=== PATIENT | male | born 1945 | race Hispanic/Latino ===

== ENCOUNTER → 2019-01-31 | Outpatient (CLI) | payer MEDICARE ==
[~2019-01-31] MED LIST: ADV250 IH; AEC81 PO; ATOR10 PO; CARV3.12 PO; CLOP75TA14 PO; TIOT18CA3 IH
== END | disposition home or self-care (01) ==
LOC: SHCH 16:41
PROVIDERS: ATTEND Internal Medicine Cardiovascular Disease
DX: I34.0 Nonrheumatic mitral (valve) insufficiency (principal); I48.0 Paroxysmal atrial fibrillation; I48.92 Unspecified atrial flutter
CPT/HCPCS: 93306

== ENCOUNTER → 2019-05-27 | Outpatient (CLI) | payer MEDICARE | END | disposition home or self-care (01) | LOC: SHCH 11:02 | PROVIDERS: ATTEND Internal Medicine Cardiovascular Disease | DX: I08.1 Rheumatic disorders of both mitral and tricuspid valves (principal); I48.0 Paroxysmal atrial fibrillation | CPT/HCPCS: 93306 ==

== ENCOUNTER → 2019-06-28 | Outpatient (CLI) | payer MEDICARE ==
[~2019-06-28] VITALS: Ht 175.3 cm; Wt 45.4 kg
[~2019-06-28] MED LIST changes: +REGADENOSON 0.4 MG/5 ML PF SYG IVP SCH
== END | disposition home or self-care (01) ==
LOC: SHCH 08:03
PROVIDERS: ATTEND Internal Medicine Cardiovascular Disease
DX: I21.29 ST elevation (STEMI) myocardial infarction involving other sites (principal); I25.10 Atherosclerotic heart disease of native coronary artery without angina pectoris
CPT/HCPCS: 78452; 93017; 96374; A9500 ×2; J2785

== ENCOUNTER 2019-07-20 05:34 | Inpatient (IN) | payer MEDICARE | END 2019-07-23 15:30 | disposition home or self-care (01) | LOC: DAH 05:34 → DAHIP 05:35 → 2DH 14:20 | DX: I50.22 Chronic systolic (congestive) heart failure (principal); J93.0 Spontaneous tension pneumothorax; J95.811 Postprocedural pneumothorax; R64 Cachexia; I25.5 Ischemic cardiomyopathy; I11.0 Hypertensive heart disease with heart failure; Z95.810 Presence of automatic (implantable) cardiac defibrillator; J44.9 Chronic obstructive pulmonary disease, unspecified; Z79.01 Long term (current) use of anticoagulants ==

== ENCOUNTER 2019-07-25 23:11 | Inpatient (IN) | payer MEDICARE ==
[~2019-07-25] VITALS: Ht 172.7 cm; Wt 47.7 kg
[~2019-07-25 23:11] MED LIST changes: -ADV250 IH; -AEC81 PO; +APIX5TAB PO; +BUDE10.22 IH; -CLOP75TA14 PO; +FLUT15.845 NS; +FURO40TA5 PO; -REGADENOSON 0.4 MG/5 ML PF SYG IVP SCH; +SACU1TAB PO; -TIOT18CA3 IH; +UMEC62.5 IH
[2019-07-25 23:22] LABS: BASOPHILS % (AUTO) 1.3 % (0.0-5.0); EOSINOPHILS % (AUTO) 4.8 % (0.0-8.0); LYMPHOCYTES % (AUTO) 21.1 % (21.0-51.0); MEAN CORPUSCULAR HEMOGLOBIN 32.7 pg (27.0-33.0); MEAN CORPUSCULAR HGB CONC 33.8 g/dL (32.0-36.0); MEAN CORPUSCULAR VOLUME 96.7 fL (79-99); MONOCYTES % (AUTO) 7.5 % (3.0-13.0); NEUTROPHILS % (AUTO) 65.3 % (40.0-77.0); PLATELET COUNT (AUTO) 124 K/uL (130-400); RED BLOOD CELL COUNT(AUTO) 4.35 MIL/uL (4.50-6.20); RED CELL DISTRIBUTION WIDTH 13.9 % (11.0-15.5)
[2019-07-25 23:32] LABS: POTASSIUM 3.7 mmol/L (3.5-5.1)
[2019-07-25 23:36] LABS: ALBUMIN 3.7 g/dL (3.5-5.0); BILIRUBIN,TOTAL 0.7 mg/dL (0.2-1.0); INR 1.02 (0.85-1.15); PARTIAL THROMBOPLASTIN TIME 28.2 SEC (26.3-35.5); PROTHROMBIN TIME 10.7 SEC (9.6-11.6)
[2019-07-25] MEDS ORDERED: FENTANYL CITRATE PF 50 MCG/1 ML 2ML VIAL ONE (23:47)
[2019-07-25] MEDS ORDERED: LIDOCAINE HCL 1% 20 ML VIAL ONE (23:47)
[2019-07-25 23:49] LABS: B-TYPE NATRIURETIC PEPTIDE 121 pg/mL (0-100)
[2019-07-26] MEDS ORDERED: ONDANSETRON HCL 4 MG/2 ML VIAL ONE (00:29)
[2019-07-26] MEDS ORDERED: FENTANYL CITRATE PF 50 MCG/1 ML 2ML VIAL ONE (01:03)
[2019-07-26] MEDS ORDERED: MORPHINE SULFATE 4 MG/1ML SYG IVP PRN (03:30)
[2019-07-26] MEDS ORDERED: ONDANSETRON HCL 4 MG/2 ML VIAL IVP PRN (03:30)
[2019-07-26] MEDS ORDERED: ACETAMINOPHEN 325 MG TAB PO PRN (03:30)
[2019-07-26] MEDS: CEFTRIAXONE SODIUM 1 GM IVP SCH (04:00)
[2019-07-26] MEDS ORDERED: CEFTRIAXONE SODIUM 1 GM ONE (04:20)
[2019-07-26 04:48] LABS: CREATININE 0.8 mg/dL (0.5-1.5)
[2019-07-26] MEDS ORDERED: SODIUM CHLORIDE 0.9% 1000ML 1,000 ML IV ONE (05:46)
[2019-07-26] MEDS ORDERED: NITR0.4T50 SL (08:55)
[2019-07-26] MEDS ORDERED: MULT-1296 PO (08:55)
[2019-07-26] MEDS ORDERED: MORPHINE SULFATE 2 MG/ML 1ML SYG ONE (13:39)
[2019-07-26] MEDS ORDERED: IPRATROPIUM/ALBUTEROL SULFATE 3 ML SOLUTION IH ONE (14:35)
[2019-07-26] MEDS: IPRATROPIUM/ALBUTEROL SULFATE 3 ML SOLUTION IH SCH ×3 (15:03→21:32)
[2019-07-26] MEDS: ATORVASTATIN CALCIUM 20 MG TABLET PO SCH (21:00)
[2019-07-26] MEDS: **HM** ENTRESTO 24-26MG PO SCH (21:00)
[2019-07-26] MEDS: FAMOTIDINE 20MG TAB 20 MG TAB PO SCH (21:00)
[2019-07-26] MEDS: APIXABAN 5 MG TABLET PO SCH (21:00)
[2019-07-26] MEDS: CARVEDILOL 3.125 MG TABLET PO SCH (21:00)
[2019-07-27] VITALS (7 sets, daily range): BP systolic 81–110; BP diastolic 51–60
[2019-07-27] MEDS ORDERED: APIXABAN 2.5 MG TABLET PO ONE (00:06)
[2019-07-27] MEDS ORDERED: ATORVASTATIN CALCIUM 20 MG TABLET ONE (00:06)
[2019-07-27] MEDS ORDERED: CARVEDILOL 3.125 MG TABLET PO ONE (00:06)
[2019-07-27] MEDS ORDERED: FAMOTIDINE 20MG TAB 20 MG TAB ONE (00:06)
[2019-07-27] MEDS ORDERED: FLU VACC QS2019-20 36MOS UP/PF 60 MCG/0.5 ML ML IM ONE (02:00)
[2019-07-27] MEDS: IPRATROPIUM/ALBUTEROL SULFATE 3 ML SOLUTION IH SCH ×5 (02:01→23:51)
[2019-07-27] MEDS: MORPHINE SULFATE 2 MG/ML 1ML SYG IVP PRN (02:18)
[2019-07-27] MEDS: CEFTRIAXONE SODIUM 1 GM IVP SCH (04:13)
[2019-07-27 05:32] LABS: BASOPHILS % (AUTO) 0.9 % (0.0-5.0); EOSINOPHILS % (AUTO) 3.7 % (0.0-8.0); HEMATOCRIT 34.1 % (42-54); LYMPHOCYTES % (AUTO) 17.9 % (21.0-51.0); MEAN CORPUSCULAR HEMOGLOBIN 33.2 pg (27.0-33.0); MEAN CORPUSCULAR HGB CONC 33.7 g/dL (32.0-36.0); MEAN CORPUSCULAR VOLUME 98.5 fL (79-99); MONOCYTES % (AUTO) 9.3 % (3.0-13.0); NEUTROPHILS % (AUTO) 68.2 % (40.0-77.0); PLATELET COUNT (AUTO) 103 K/uL (130-400); RED BLOOD CELL COUNT(AUTO) 3.46 MIL/uL (4.50-6.20); RED CELL DISTRIBUTION WIDTH 13.6 % (11.0-15.5)
[2019-07-27 05:52] LABS: ALBUMIN 2.7 g/dL (3.5-5.0); BILIRUBIN,TOTAL 0.6 mg/dL (0.2-1.0); CREATININE 0.8 mg/dL (0.5-1.5); POTASSIUM 3.9 mmol/L (3.5-5.1); TOTAL PROTEIN, SERUM 5.5 g/dL (6.0-8.3)
--- NOTE | 2019-07-27 08:30 | NUR ---
AM ASSESSMENT PT LAYING IN BED, HOB ELEVATED 30 DEGREES, RESTING. FAMILY @ BEDSIDE. A/O X 3. SOB ON EXERTION. NO DISTRESS NOTED. O2 NC @ 2L. DENIES CHEST PAIN OR DISCOMFORT. DENIES PALPITATIONS. DENIES INCISIONAL PAIN. LT UPPER CHEST DSG DRY & INTACT. NO DRAINAGE NOTED. NO HEMATOMA NOTED. PPM ARM PRECAUTIONS REINFORCED. LT LATERAL CHEST TUBE TO SUCTION. NO AIR LEAK NOTED. DSG DRY & INTACT. DENIES N/V AND/OR DIARRHEA. BR W/BRP. INSTRUCTED TO CALL FOR ASSISTANCE. CALL JADE W/IN REACH.
[2019-07-27] MEDS: CARVEDILOL 3.125 MG TABLET PO SCH ×2 (09:00→21:00)
[2019-07-27] MEDS: MULTIVITAMINS/MINERALS/IRO TAB PO SCH (09:17)
[2019-07-27] MEDS: FAMOTIDINE 20MG TAB 20 MG TAB PO SCH ×2 (09:21→20:56)
[2019-07-27] MEDS: APIXABAN 5 MG TABLET PO SCH ×2 (09:22→20:57)
[2019-07-27 13:04] LABS: HEMATOCRIT 33.7 % (42-54); MEAN CORPUSCULAR HEMOGLOBIN 32.8 pg (27.0-33.0); MEAN CORPUSCULAR HGB CONC 33.7 g/dL (32.0-36.0); MEAN CORPUSCULAR VOLUME 97.3 fL (79-99); PLATELET COUNT (AUTO) 111 K/uL (130-400); RED BLOOD CELL COUNT(AUTO) 3.46 MIL/uL (4.50-6.20); RED CELL DISTRIBUTION WIDTH 13.7 % (11.0-15.5); WHITE BLOOD COUNT (AUTO) 8.1 K/uL (4.8-10.8)
--- NOTE | 2019-07-27 15:58 | NUR ---
MD VISIT DR ALINA PEDRO & Thania CAAL SUPERVISOR IN CIRCUIT TESTING IN TO SEE PT. LT CHEST TUBE TO H2O SEAL, SUCTION DC'D BY MD. ORDERS RECEIVED & ENTERED.
[2019-07-27] MEDS: **HM** ENTRESTO 24-26MG PO SCH ×2 (16:02→21:00)
--- NOTE | 2019-07-27 16:18 | NUR ---
DCP CM met with pt discussed dc plans. Pt is independent prior to admission, lives at home with spouse. Has a provider 20hrs/wk, shower chair, cane. Denies any other equipments/services. Pt feels safe to go back home, daughter able to assist with transportation and needs as necessary. DC plan to home once stable. CM to cont to follow up. Addendum: 07/27/19 at 1620 by VERONICA OROZCO LVN CM Amended: Links added.
[2019-07-27] MEDS: ATORVASTATIN CALCIUM 20 MG TABLET PO SCH (20:56)
[2019-07-28 04:00] VITALS: BP 102/60
[2019-07-28 04:38] LABS: CREATININE 0.9 mg/dL (0.5-1.5); POTASSIUM 3.4 mmol/L (3.5-5.1)
[2019-07-28] MEDS: IPRATROPIUM/ALBUTEROL SULFATE 3 ML SOLUTION IH SCH ×4 (05:02→23:52)
[2019-07-28] MEDS: CEFTRIAXONE SODIUM 1 GM IVP SCH (05:32)
[2019-07-28 07:43] VITALS: BP 106/65
--- NOTE | 2019-07-28 08:30 | NUR ---
AM ASSESSMENT PT LAYING IN BED, HOB ELEVATED 30 DEGREES, RESTING. SPOUSE @ BEDSIDE. A/O X 3. SOB ON EXERTION. NO DISTRESS NOTED. O2 NC @ 2L. DENIES CHEST PAIN OR DISCOMFORT. DENIES INCISIONAL PAIN. DENIES PAIN OT CHEST TUBE PUNCTURE SITE. TELE: PACED 90s. LT UPPER CHEST INCISION, DRY & INTACT. NO DRAINAGE NOTED. S/P PPM 07/21/19. PPM ARM PRECAUTIONS REINFORCED. LT LATERAL CHEST TUBE TO H20 SEAL. NO AIR LEAK NOTED. DENIES N/V AND/OR DIARRHEA. BEDREST W/BRP. INSTRUCTED TO CALL FOR ASSISTANCE. CALL JADE W/IN REACH.
[2019-07-28] MEDS: APIXABAN 5 MG TABLET PO SCH ×2 (08:43→20:28)
[2019-07-28] MEDS: MULTIVITAMINS/MINERALS/IRO TAB PO SCH (08:43)
[2019-07-28] MEDS: FAMOTIDINE 20MG TAB 20 MG TAB PO SCH ×2 (08:43→20:28)
[2019-07-28] MEDS: **HM** ENTRESTO 24-26MG PO SCH ×2 (08:44→20:29)
[2019-07-28] MEDS: CARVEDILOL 3.125 MG TABLET PO SCH ×2 (08:44→20:32)
--- NOTE | 2019-07-28 10:30 | NUR ---
BOWEL MOVEMENT PT ASKING FOR BEDSIDE COMMODE TO HAVE BM. PT ATTEMPTED TO GET OOB W/HELP FROM SPOUSE. PER PT, TOO WEAK TO GET UP AND REQUESTED BEDPAN. PCP, RICKI, OFFERED TO PLACE PT ON BEDPAN. PT REFUSED PCPs HELP, STATED WOULD ASSIST HIM. PT UNABLE TO BE PLACED ON BEDPAN BY SPOUSE. EXPLAINED TO PT STAFF WILL ASSIST TO GET OOB AND/OR BEDPAN SINCE LT CHEST TUBE IN PLACE & RECENT PPM PLACEMENT. INFORMED STAFF WOULD ASSIST GET OOB & WALK TO RESTRM BUT WOULDN'T BE PRESENT IN RESTRM WHEN PT ATTEMPTS TO HAVE BM. PT PREFERS NOT HAVE BM AND NOT BE ASSISTED BY STAFF TO RESTRM, BEDSIDE COMMODE, OR BEDPAN. REINFORCE SAFETY CONCERNS AND REASON FOR STAFF'S ASSISTANCE. PT CONTINUES TO REFUSE ASSISTANCE AND STATES NOT HAVING TO HAVE A BM. PROCEEDS TO EXPLAIN HE HAS BEEN EATING VERY LITTLE AND DOESN'T HAVE NEED FOR BM. ABDOMEN SOFT, NON-TENDER. DENIES ABDOMINAL PAIN. REMINDED PT LAST BM WAS 07/23/19. PT CONTINUES TO REFUSE ASSISTANCE FROM STAFF. SIMILAR SCENARIO HAPPENED W/SPOUSE PESENT REGARDING BM ON 07/27/19. ARM PRECAUTIONS & SAFETY REINFORCED.
[2019-07-28 11:01] VITALS: BP 122/62
[2019-07-28 16:00] VITALS: BP 102/52
--- NOTE | 2019-07-28 19:35 | NUR ---
TRANSFER PT TRANSFERRED TO RM 204 VIA BED. FAMILY NOTIFIED. PT TOLERATED TRANSFER WELL. NO DISTRESS NOTED. BEDSIDE REPORT GIVEN TO PAULA Hyatt RN.
[2019-07-28 19:43] VITALS: BP 121/48
[2019-07-28] MEDS: ATORVASTATIN CALCIUM 20 MG TABLET PO SCH (20:32)
[2019-07-28 23:37] VITALS: BP 104/63
[2019-07-28] MEDS: MORPHINE SULFATE 2 MG/ML 1ML SYG IVP PRN (23:45)
[2019-07-29 03:54] VITALS: BP 113/62
[2019-07-29] MEDS: CEFTRIAXONE SODIUM 1 GM IVP SCH (04:09)
--- NOTE | 2019-07-29 05:42 | NUR ---
Chest Tube Removed chest tube as per MD orders. No distress noted, denies any shortness of breath, auscultation to bilateral lobes diminished breath sounds. Patient stable. Post chest tube removal X-ray completed pending results.
[2019-07-29] MEDS: IPRATROPIUM/ALBUTEROL SULFATE 3 ML SOLUTION IH SCH ×4 (06:17→23:03)
[2019-07-29 07:04] VITALS: BP 90/50
[2019-07-29] MEDS: **HM** ENTRESTO 24-26MG PO SCH ×2 (09:00→21:00)
[2019-07-29] MEDS: FAMOTIDINE 20MG TAB 20 MG TAB PO SCH ×2 (10:45→21:47)
[2019-07-29] MEDS: APIXABAN 5 MG TABLET PO SCH ×2 (10:46→21:47)
[2019-07-29 11:00] VITALS: BP 97/63
[2019-07-29] MEDS: MULTIVITAMINS/MINERALS/IRO TAB PO SCH (11:49)
[2019-07-29 15:00] VITALS: BP 119/70
[2019-07-29] MEDS: CARVEDILOL 3.125 MG TABLET PO SCH ×3 (17:41→21:47)
--- NOTE | 2019-07-29 18:01 | NUR ---
DC PLAN SPOKE TO PATIENT AND FAMILY. DECLINED SNF. SAID HE WILL GET MORE PT AT HOME THAN AT A FACILITY. TOLD HIM IT WAS ALSO FOR O2. SAID HE ALREADY HAS 02 AT HOME THAT CHILDREN PURCHASED FOR HIM. Addendum: 07/29/19 at 1802 by SANTO HARDY RN CM Amended: Links added.
[2019-07-29 20:06] VITALS: BP 92/42
[2019-07-29] MEDS: ATORVASTATIN CALCIUM 20 MG TABLET PO SCH (21:46)
[2019-07-29 23:56] VITALS: BP 96/54
[2019-07-30 04:15] VITALS: BP 101/52
[2019-07-30] MEDS: CEFTRIAXONE SODIUM 1 GM IVP SCH (06:07)
[2019-07-30] MEDS: IPRATROPIUM/ALBUTEROL SULFATE 3 ML SOLUTION IH SCH ×4 (06:28→23:37)
[2019-07-30 07:12] VITALS: BP 95/53
[2019-07-30] MEDS: CARVEDILOL 3.125 MG TABLET PO SCH ×2 (07:52→20:47)
[2019-07-30] MEDS: APIXABAN 5 MG TABLET PO SCH ×2 (07:53→14:55)
[2019-07-30] MEDS: **HM** ENTRESTO 24-26MG PO SCH ×2 (07:54→21:00)
[2019-07-30] MEDS: MULTIVITAMINS/MINERALS/IRO TAB PO SCH (07:54)
[2019-07-30] MEDS: FAMOTIDINE 20MG TAB 20 MG TAB PO SCH ×2 (07:54→20:47)
--- NOTE | 2019-07-30 08:00 | NUR ---
ASSESSMENT PT IS AAOX4 DENIES CP DENIES SOB DENIES NV NO COMPLAINTS AT THIS TIME. AM MEDS GIVEN, TOLERATED WELL.SITTING UPRIGHT IN BED.. CALL LIGHT WITHIN REACH. FAMILY AT BEDSIDE.
--- NOTE | 2019-07-30 10:15 | NUR ---
DR PIERRE REPORTED TO [place] PNEUMO 20-40% LEFT SIDE THESE RESULTS REPORTED TO KARRIE GAGNON AUTOMOBILE BODY REPAIR SUPERVISOR, AWAITING FURTHER ORDERS
--- NOTE | 2019-07-30 11:13 | NUR ---
ORDERS RECEIVED FOR IR TO PLACE PIGTAIL PATIENT IS REFUSING PIGTAIL PLACEMENT,STATES HE DOESN'T WANT IT AGAIN. WILL LET FIRE EXTINGUISHER TECHNICIAN KNOW.
[2019-07-30 11:14] VITALS: BP 108/68
--- NOTE | 2019-07-30 11:18 | NUR ---
KARRIE GAGNON MADE AWARE OF PTS REFUSAL STATES SHE WILL LET DR MARIA KNOW, WAITING FOR DR MARIA TO ROUND
--- NOTE | 2019-07-30 13:00 | NUR ---
DR MARIA ROUNDED SPOKE WITH PATIENT REGARDING IR TUBE PLACEMENT, AND SURGEON INTERVENTION / OPINION FOR RECURRENT PNEUMOS. PATIENT AGREEABLE TO A SURGICAL OPINION. PATIENT ALSO SAYING IF THINGS WERE TO NOT GO WELL FOR HIM, HE'D LIKE TO BE MADE COMFORTABLE, AND BE HOME LAST RESORT. DR MARIA AGREEABLE FOR HOSPICE CONSULTATION FOR PATIENT IF PATIENT FEELS HE DOESNT WANT TO PROCEED WITH ANY TREATMENT FOR RECURRENT PNEUMOS. PATIENT AND FAMILY TO DISCUSS AMONGST THEMSELVES.
--- NOTE | 2019-07-30 13:41 | NUR ---
PATIENT AGREEABLE TO PIGTAIL CATH PLAN FOR PIGTAIL PLACEMENT THIS AFTERNOON BY RAD STAFF
--- NOTE | 2019-07-30 14:45 | NUR ---
RADIOLOGY STAFF CALLED TO FLOOR STATE THEY WILL PLACE PIGTAIL TOMORROW 9AM, [facility] TO BE ON HOLD TONIGHT AND TOMORROW AM PRIOR TO PIGTAIL. PATIENT MADE AWARE AND AGREES WITH PLAN.
[2019-07-30 14:53] VITALS: BP 99/66
--- NOTE | 2019-07-30 17:15 | NUR ---
STATUS RESTING IN BED, NO COMPLAINTS. FAMILY AT BEDSIDE.
[2019-07-30 20:26] VITALS: BP 114/70
[2019-07-30] MEDS: ATORVASTATIN CALCIUM 20 MG TABLET PO SCH (20:47)
[2019-07-30 23:55] VITALS: BP 93/59
[2019-07-31 03:38] LABS: HEMATOCRIT 32.2 % (42-54); MEAN CORPUSCULAR HEMOGLOBIN 33.9 pg (27.0-33.0); MEAN CORPUSCULAR HGB CONC 34.9 g/dL (32.0-36.0); MEAN CORPUSCULAR VOLUME 97.3 fL (79-99); PLATELET COUNT (AUTO) 170 K/uL (130-400); RED BLOOD CELL COUNT(AUTO) 3.31 MIL/uL (4.50-6.20); RED CELL DISTRIBUTION WIDTH 13.4 % (11.0-15.5); WHITE BLOOD COUNT (AUTO) 6.5 K/uL (4.8-10.8)
[2019-07-31 03:44] LABS: CREATININE 0.8 mg/dL (0.5-1.5); POTASSIUM 3.6 mmol/L (3.5-5.1)
[2019-07-31 03:59] VITALS: BP_SYST 103; BP_SYST 155; BP_DIAS 54; BP_DIAS 65
--- NOTE | 2019-07-31 04:03 | NUR ---
PATIENT GOING FOR PIGTAIL TOMORROW.NPO SINCE MIDNIGHT. NO C/O SOB OR CHEST PAIN. JETCA ROUNDED ON PATIENT 1944.
[2019-07-31] MEDS: CEFTRIAXONE SODIUM 1 GM IVP SCH (05:10)
[2019-07-31] MEDS: IPRATROPIUM/ALBUTEROL SULFATE 3 ML SOLUTION IH SCH ×4 (06:14→23:10)
[2019-07-31 07:00] VITALS: BP 93/59
[2019-07-31] MEDS: CARVEDILOL 3.125 MG TABLET PO SCH ×2 (07:48→21:00)
[2019-07-31] MEDS: **HM** ENTRESTO 24-26MG PO SCH ×2 (07:50→21:00)
[2019-07-31] MEDS: APIXABAN 5 MG TABLET PO SCH ×2 (07:50→20:28)
[2019-07-31] MEDS: MULTIVITAMINS/MINERALS/IRO TAB PO SCH (07:50)
[2019-07-31] MEDS: FAMOTIDINE 20MG TAB 20 MG TAB PO SCH ×2 (07:50→20:28)
--- NOTE | 2019-07-31 08:45 | NUR ---
ASSESSMENT PT IS AAOX4 DENIES CP DENIES SOB DENIES NV NO COMPLAINTS. RESTING IN BED. CALL LIGHT WITHIN REACH. NPO STATUS FOR PIGTAIL CATH.
[2019-07-31 09:22] LABS: INR 1.06 (0.85-1.15); PROTHROMBIN TIME 11.1 SEC (9.6-11.6)
[2019-07-31] MEDS ORDERED: FENTANYL CITRATE PF 50 MCG/1 ML 2ML VIAL ONE (09:38)
--- NOTE | 2019-07-31 10:00 | NUR ---
U/S GD LEFT PIGTAIL TAIL CATHETER PLACEMENT CHEST TUBE. NOT DONE CHEST CT SCAN DONE BY SHAI BID ANALYST. DR. COLE VIEWED IMAGES AND NOTED PATIENT DOES NOT HAVE A PNEUMOTHORAX. INFORMED PT OF RESULTS. CALLED REPORT TO 2ND FLOOR NURSE FERNANDA GUEVARA. PT TRANSFERRED TO ROOM 204 VIA BED, STABLE, AAO X3 WITH NO C/O PAIN. INFORMED CONCERNED FAMILY AT THE BEDSIDE OF NO PNEUMOTHORAX SEEN AND NO NEED FOR A CHEST TUBE TO BE PLACED. FAMILY VERBALIZED UNDERSTANDING.
--- NOTE | 2019-07-31 10:25 | NUR ---
RETURNED FROM RADIOLOGY NO CHEST TUBE PLACED. PER RAD STAFF, NO CHEST TUBE NEEDED. BENCHMARK STAFF MADE AWARE.
[2019-07-31 11:03] VITALS: BP 103/52
--- NOTE | 2019-07-31 12:00 | NUR ---
DR CANDACE PARSON SAW PATIENT, PLAN DC HOME TOMORROW WITH HOME O2 EVAL
[2019-07-31 14:59] VITALS: BP 90/56
--- NOTE | 2019-07-31 18:20 | NUR ---
STATUS RESTING IN BED. NO COMPLAINTS DENIES PAIN. CURRENTLY RECEIVING NEB. CALL LIGHT WITHIN REACH.
[2019-07-31] MEDS: ATORVASTATIN CALCIUM 20 MG TABLET PO SCH (20:27)
[2019-07-31 20:52] VITALS: BP 95/59
[2019-08-01 00:03] VITALS: BP 99/48
--- NOTE | 2019-08-01 01:20 | NUR ---
JETCA ROUNDED ON PATIENT AT THIS TIME. POSSIBLE D/C HOME 08/01
--- NOTE | 2019-08-01 03:40 | NUR ---
PATIENT RESTING IN BED. HEART RATE AFIB. REACHING UP TO 140, NON SUSTAINING. NON SYMPTOMATIC. COREG NOT GIVEN, SBP LOW 90S.
[2019-08-01 04:05] VITALS: BP 104/51
[2019-08-01] MEDS: CEFTRIAXONE SODIUM 1 GM IVP SCH (04:49)
[2019-08-01] MEDS: IPRATROPIUM/ALBUTEROL SULFATE 3 ML SOLUTION IH SCH ×2 (06:28→11:07)
[2019-08-01 07:00] VITALS: BP 114/69
[2019-08-01] MEDS: FAMOTIDINE 20MG TAB 20 MG TAB PO SCH (10:08)
[2019-08-01] MEDS: MULTIVITAMINS/MINERALS/IRO TAB PO SCH (10:08)
[2019-08-01] MEDS: **HM** ENTRESTO 24-26MG PO SCH (10:09)
[2019-08-01] MEDS: CARVEDILOL 3.125 MG TABLET PO SCH (10:09)
[2019-08-01 11:00] VITALS: BP 111/55
[2019-08-01 15:00] VITALS: BP 100/49
== END 2019-08-01 18:01 | disposition home or self-care (01) | DRG 199 ==
LOC: EDH 23:11 → OBSVTOIN 07-26 02:40 → EDHIP 07-26 02:40 → 4CH 07-27 00:44 → 2AH 07-28 19:36
PROVIDERS: ADMIT Internal Medicine; ATTEND Internal Medicine
PROC: 0W9B30Z Drainage of Left Pleural Cavity with Drainage Device, Percutaneous Approach (ICD-10-PCS; principal; 2019-07-31)
DX: J93.0 Spontaneous tension pneumothorax (principal); E43 Unspecified severe protein-calorie malnutrition; I50.20 Unspecified systolic (congestive) heart failure; I11.0 Hypertensive heart disease with heart failure; E78.5 Hyperlipidemia, unspecified; Z87.442 Personal history of urinary calculi; I49.5 Sick sinus syndrome; Z95.0 Presence of cardiac pacemaker; I25.2 Old myocardial infarction; F17.200 Nicotine dependence, unspecified, uncomplicated; I95.9 Hypotension, unspecified; X58.XXXA Exposure to other specified factors, initial encounter
CPT/HCPCS: 36415; 71045; 71250; 80048; 80053; 82550; 83880; 84484; 85025; 85027; 85610; 85730; 93005; 94640; 94664; 94760; 97039; G0378; J0696; J2405; J3010; J7030; Q2035